=== PATIENT | female | born 1990 | race Two or more races ===

== ENCOUNTER 2016-11-22 10:17 | Emergency (ER) | payer OTHER ==
[~2016-11-22] VITALS: Ht 165.1 cm; Wt 67.1 kg
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
== END 2016-11-22 12:55 | disposition home or self-care (01) ==
LOC: CED 10:17 → CFTX 10:17
DX: M54.5 Low back pain (principal); M25.552 Pain in left hip
CPT/HCPCS: 72100; 73502; 84703; 99283; J1885